=== PATIENT | male | born 1975 | race Caucasian/White ===

== ENCOUNTER 2022-08-20 13:15 | Outpatient (CLI) | payer OTHER ==
--- NOTE | 2022-08-20 21:26 | SLEEP CARE CONSULTATION ---
Information from patient questionnaire entered by Danika Mendoza. I have reviewed and concur with the information entered by Danika Mendoza. This document represents the service I personally performed and the decisions made by me, Shilpi Muir MD, [facility]. History of Present Illness Service Date and Time: 08/20/2022 1315 Reason for Visit: New patient Chief Complaint: reports: Other (NEED NEW MACHINE) Date of Onset: 2009 Usual bedtime: 10PM Time it takes to fall asleep: 3MIN OR LESS Snores at night: Yes Observed to quit breathing while asleep: Yes Sleeps alone due to snoring: No Number of times waking at night: 1-2 Reasons for waking at night: reports: Other (NOISES DAUGHTER SNORGING, TALKING ) Toss, Turn, or Twitch while sleeping: Yes Recalls having dreams: No Usually gets out of bed at: 0415 Feels refreshed in the morning: No Morning headache: Yes Sleepy or fatigued during the day: Yes Ever fallen asleep while driving: Yes Takes day naps: Yes Prior sleep studies: Yes Year and Where: [facility] Additional HPI information: I had the pleasure of seeing Mr. Powell today regarding obstructive sleep apnea-hypopnea. As you know, he is a 47-year-old gentleman who was diagnosed with the sleep-disordered breathing at [facility] about 10 years ago. The report is not available. Presently, he is using a ResMed S9 set at 11 cmH2O. He uses it every night and all night. The compliance data show usage in 90 out of the past 90 nights, averaging 7.1 hours a night. The residual AHI is 0.9 and average air leak is 27 L/minute. He wears a ResMed Quattro full face mask. He gets his supplies from [employer]. He finds the treatment very beneficial. - Parasomnia Symptoms Ever been unable to move upon waking from sleep: No Walks in sleep: No Talks in sleep: Yes Ever acted out dreams in sleep: Yes Ever felt weak in the knees when startled or emotional: No Problems with memory or concentration: Yes Subjective Initial [place] Sleepiness Scale score: 18 (LEFT ARM) Past Medical History Past Medical History: reports: GERD Social History The patient's occupation is a RE. Patient is and lives in [place]. Have you smoked in the past 12 months: No Alcohol use: Yes Alcohol amount and frequency: 1 12OZ CAN A MONTH Caffeine use: Yes Caffeine amount and frequency: 75OZ DAILY Family History Family history of sleep disordered breathing: Yes Family Hx Sleep Apnea: Mother: Snoring, Sleep apnea - Untreated, Sibling: Snoring Allergies and Home Medications Known drug allergies: No Drug allergies reviewed: Yes Home medication list reviewed: Yes Review of Systems Weight gain over past 5 years: 35 Cardiovascular: denies: high blood pressure, palpitations, chest pain, irregular heart rate or pulse, leg or foot swelling, have to sleep sitting up, other Respiratory: reports: shortness of breath Gastrointestinal: reports: difficulty swallowing, other (COUGH AFTER EATING) Urinary: denies: incontinence, frequency, urgency, impotence, other Neurological: reports: headaches Psychiatric: reports: other (ADD) Ear/Nose/Throat: reports: nasal congestion, sinus problems, wisdom teeth removed, other (LOTS OF EAR WAX) Endocrine: reports: unexplained weakness Musculoskeletal: reports: joint pain Immunologic: denies: sneezing, rash, itching, allergies to food or environment, other Physical Exam Vital signs obtained and entered by: DANIKA Moody MA Blood Pressure: 122/66 (LEFT ARM) Cuff size: regular Heart Rate: 105 O2 Saturation: 97 Height: 6 ft Weight: 262 lb 3.2 oz Body Mass Index: 35.5 BMI Classification: Obese Neck circumference: 20.5 HEENT: No craniofacial malformation Nostrils: patent to airflow Turbinates: normal Septum: midline Mouth and throat: narrow oropharynx Soft palate: long Hard palate: normal Uvula: normal Uvula visualization: 50% Mallampati Class II Tongue: normal in size Tonsils: small Chin and jaw: normal size and position Neck: normal w/o lymphadenopathy or thyromegaly Heart: regular rate and rhythm Lungs: clear bilaterally Extremities: no edema or clubbing Neurologic: intact Impression and Plan IMPRESSION: 1. Obstructive Sleep Apnea-Hypopnea Syndrome, as previously vanessa gnosed. Ther severity is unknown as we do not have any of his sleep records from [facility] which closed several years ago. Narrow oropharynx and obesity are common predisposing factors for obstructive sleep apnea-hypopnea syndrome. The patients ResMed S9 is very old and should be replaced. In order for me to prescribe him a new machine, a new sleep study will be ordered to document the sleep-related breathing disorder and its severity. Plan: 1. Schedule an in-laboratory polysomnography. Try not to use the CPAP one night prior to the sleep study. 2. Try to lose weight. 3. Return for follow up after the sleep study. I will order him all new equipment at that time. Follow up with Sleep Care in: 1-2 months Follow up recommended for: Weight management Visit Type: In Office Time Spent with Patient (minutes): 15 Provider Statement: I spent 100% of the Face to Face Visit with the patient with greater than 50% spent counseling the patient and coordination of care.
[2022-08-20 21:27] VITALS: BP 122/66
== END 2022-08-20 13:16 | disposition home or self-care (01) ==
LOC: SC 13:15
PROVIDERS: ATTEND Internal Medicine Pulmonary Disease
DX: G47.33 Obstructive sleep apnea (adult) (pediatric) (principal); E66.9 Obesity, unspecified; Z68.35 Body mass index [BMI] 35.0-35.9, adult
CPT/HCPCS: 99202; 99212

== ENCOUNTER 2023-09-17 14:16 | Outpatient (CLI) | payer OTHER ==
--- NOTE | 2023-09-17 14:55 | SLEEP CARE CONSULTATION ---
Information from patient questionnaire entered by Sharon Mendoza. I have reviewed and concur with the information entered by Sharon Mendoza. This document represents the service I personally performed and the decisions made by , Zo Medeiros ARNP. History of Present Illness Service Date and Time: 09/17/2023 1416 Previous diagnosis: Mild, Obstructive Sleep Apnea-Hypopnea Syndrome AHI: 10.5 (10/22/2013) Reason for follow up: first compliance, annual Equipment type: CPAP (RESMED AirCurve 10 BiPAP, s/u 12/12/2022) Equipment obtained from: [employer] (getting supplies) Mask style: Full face (Mirage Quattro) Backup mask available: Yes Last cushion change: 30 days or more Prior sleep studies: Yes Year and Where: [facility] 10/22/2013 HPI additional information: BIRGHT CORREA was diagnosed to have mild, AHI 10.5, obstructive sleep apnea- hypopnea syndrome and returned today for CPAP therapy first compliance/annual follow-up. Sleep Study - Results Prior sleep studies: Yes Year and Where: [facility] CPAP Compliance Data - Data Reviewed with Patient Average duration of nightly device use: 8 hours 14 minutes Compliance rate %: 99 (05/29/23-09/11/23; 105/106 days used) Current pressure setting (cmH2O): EPAP 15, 3-10 pressure support Average residual AHI: 2.8 Average large leak: 0.3 L/min Compliance data discussion: Initial compliance was 100% in 2022. Subjective Patient concerns: denies: aerophagia, mask discomfort, air blowing in eyes, mask leak noise, condensation in mask/hose, nasal congestion, dry mouth, nose, throat, epistaxis Observed to snore while using device: No Current pressure setting perceived as: comfortable On therapy, patient: reports: sleeping better, awakening more refreshed, more rested overall. denies: drowsiness while driving Initial [place] Sleepiness Scale score: 18 (LEFT ARM) Current [place] Sleepiness Scale score: 19 Allergies and Home Medications Known drug allergies: No Drug allergies reviewed: Yes Home medication list reviewed: Yes (no changes) Review of Systems Review of systems same as previous: Yes (no changes) Physical Exam Vital signs obtained and entered by: ZO GEE Blood Pressure: 152/110 Cuff size: long Heart Rate: 76 O2 Saturation: 97 Height: 6 ft Weight: 265 lb 9.6 oz Body Mass Index: 36.0 BMI Classification: Obese Impression and Plan 1. Obstructive Sleep Apnea-Hypopnea Syndrome, mild, with good treatment compliance and good apnea control. On BiPAP ASV therapy, the patient has better sleep quality and is more rested overall. Patient has significant improvement of their sleep apnea and is satisfied with current CPAP therapy. Patient denies problems with oral dryness, nasal congestion, epistaxis, skin irritation or aerophagia. He would like to try a different type of mask, ResMed F20. I had a ResMed AirFit F20, medium cushion, which I tried on him and it fit well. He will take it home and try it to see if he wants to order more. Patient's apnea severity and rationale for treatment to reduce apnea, improve sleep quality and reduce cardiovascular and cerebrovascular events was reviewed. I also reviewed the benefit of consistent device use of BiPAP for gastric reflux. 2. Obesity, unspecified. Currently patients BMI is 36. Obesity increases the risk of apnea, BiPAP pressure requirements and overall health risks especially cardiovascular and diabetes. Thus patient is advised to lose weight. 3. Elevated blood pressure reading in clinic today. His blood pressure reading today was 152/110. He denies symptoms and says that he normally has higher readings in the doctor's office. * Continue BiPAP ASV pressure at 15 cmH2O EPAP with 3-10 pressure support * Patient to try the ResMed Airfit F20, medium cushion * Update supply prescription * Notify me if snoring with mask or feeling that the pressure is too much or too little * Attempt to lose weight * Call this office if any problems using BiPAP * Return for follow up in 12 months, or sooner if concerns arise Mask provided: Yes Counseling Topics: Weight loss health impact Prescriptions: Device supplies Follow up with Sleep Care in: 1 year Visit Type: In Office Time Spent with Patient (minutes): 24 Provider Statement: I spent 100% of the Face to Face Visit with the patient with greater than 50% spent counseling the patient and coordination of care.
[2023-09-17 15:01] VITALS: BP 152/110; O2SAT 97
== END 2023-09-17 14:17 | disposition home or self-care (01) ==
LOC: SC 14:16
PROVIDERS: ATTEND Nurse Practitioner Family
DX: G47.33 Obstructive sleep apnea (adult) (pediatric) (principal); E66.9 Obesity, unspecified; Z68.36 Body mass index [BMI] 36.0-36.9, adult; R03.0 Elevated blood-pressure reading, without diagnosis of hypertension
CPT/HCPCS: 99212; 99213